=== PATIENT | male | born 1980 | race African-American/Black ===

== ENCOUNTER → 2017-11-16 | Outpatient (REF) | payer OTHER ==
[2017-11-16 14:51] LABS: SEMEN APPEARANCE OPAQUE (OPAQUE); SEMEN VISCOSITY LIQUID (LIQUID); SEMEN VOLUME 4.2 ml (4.0-5.0); SEMEN pH 8.5 (7.0-8.0); SPERM CONCENTRATION 60.3 M/ml (>=15.0); WBC CONCENTRATION <=1 M/ml (<=1 M/ml)
[2017-11-16 14:52] LABS: % NORMAL FORMS 11 % (>=4); IMMOTILITY 46 %; NON PROGRESSIVE MOTILITY (c) 9 %; PROGRESSIVE MOTILITY (a) 45 % (>=32); TOTAL MOTILITY 54 % (>=40)
[2017-11-16 14:53] LABS: SPERM# 253.4 M/Ejac (>=39)
[2017-11-16 14:54] LABS: TOTAL PROGRESSIVE SPERM 113.6 M/Ejac.
== END ==
LOC: M LAB REF 14:44
DX: Z31.41 Encounter for fertility testing (principal)
CPT/HCPCS: 89320

== ENCOUNTER 2018-04-18 00:23 | Emergency (ER) | payer OTHER ==
[2018-04-18] MEDS: NS 1,000 ML IV (00:45)
[2018-04-18 00:46] LABS: BASO # 0.1 10^3/uL (0.0-0.2); BASO % 0.8 % (0.0-1.0); EOS # 0.2 10^3/uL (0.0-0.50); EOS % 1.9 % (0.0-3.0); HEMATOCRIT 47.1 % (42.0-52.0); HEMOGLOBIN 15.3 g/dl (13.5-17.5); IMMATURE GRANULOCYTE % 0.4 % (0-3.0); LYMPH # 2.5 10^3/uL (1.5-4.5); LYMPH % 31.4 % (24.0-44.0); MEAN CORPUSCULAR HEMOGLOBIN 28.8 pg (27.0-33.0); MEAN CORPUSCULAR HGB CONC 32.5 g/dl (32.0-36.5); MEAN CORPUSCULAR VOLUME 88.5 fl (80.0-96.0); MONO # 0.7 10^3/uL (0.0-0.8); MONO % 9.2 % (0.0-5.0); NEUTROPHILS # 4.5 10^3/uL (1.8-7.7); NEUTROPHILS % 56.3 % (36.0-66.0); PLATELET COUNT, AUTOMATED 189 10^3/uL (150-450); RED BLOOD COUNT 5.32 10^6/uL (4.30-6.10); RED CELL DISTRIBUTION WIDTH 14.4 % (11.5-14.5); WHITE BLOOD COUNT 7.9 10^3/uL (4.0-10.0)
[2018-04-18 00:51] LABS: AMORPHOUS SEDIMENT SMALL (NEGATIVE); APPEARANCE, URINE CLOUDY (CLEAR); BACTERIA, URINE AUTO NEGATIVE (NEGATIVE); BILIRUBIN, URINE AUTO NEGATIVE (NEGATIVE); BLOOD, URINE BLOOD 2+ (NEGATIVE); COLOR, URINE YELLOW (YELLOW); GLUCOSE, URINE (UA) AUTO NEGATIVE (NEGATIVE); KETONE, URINE AUTO NEGATIVE (NEGATIVE); LEUKOCYTE ESTERASE, URINE AUTO TRACE (NEGATIVE); MUCUS, URINE SMALL (NEGATIVE); NITRITE, URINE AUTO NEGATIVE (NEGATIVE); PROTEIN, URINE AUTO 1+ mg/dL (NEGATIVE); RBC, URINE AUTO 73 /HPF (0-3); SQUAMOUS EPITHELIAL CELL UR AU 0 /HPF (0-6); WBC, URINE AUTO 10 /HPF (0-3)
[2018-04-18] MEDS: MORPHINE 4 MG/ML 1ML VIAL/SYRINGE (J2270) IV (00:52)
[2018-04-18 01:12] LABS: ANION GAP 9 MEQ/L (8-16); BLOOD UREA NITROGEN 17 MG/DL (7-18); CALCIUM LEVEL 8.6 MG/DL (8.5-10.1); CARBON DIOXIDE LEVEL 29 MEQ/L (21-32); CHLORIDE LEVEL 106 MEQ/L (98-107); CREATININE FOR GFR 1.71 MG/DL (0.70-1.30); GLOMERULAR FILTRATION RATE 57.8 (>60); GLUCOSE, FASTING 103 MG/DL (70-100); POTASSIUM SERUM 3.7 MEQ/L (3.5-5.1); SODIUM LEVEL 144 MEQ/L (136-145)
[2018-04-18] MEDS: CIPROFLOXACIN 500 MG TAB PO (02:39)
[2018-04-18] MEDS: OXYCODONE/APAP 5MG/325MG(BULK FOR ED) 1 TABLET PO (02:39)
== END 2018-04-18 02:45 | disposition home or self-care (01) ==
LOC: M ED 00:23
DX: N20.1 Calculus of ureter (principal); N13.30 Unspecified hydronephrosis; Z98.890 Other specified postprocedural states; Z72.0 Tobacco use
CPT/HCPCS: J2270

== ENCOUNTER → 2018-05-15 | Outpatient (REF) | payer OTHER ==
[2018-05-15 19:01] LABS: APPEARANCE, URINE HAZY (CLEAR); BACTERIA, URINE AUTO NEGATIVE (NEGATIVE); BILIRUBIN, URINE AUTO NEGATIVE (NEGATIVE); BLOOD, URINE BLOOD NEGATIVE (NEGATIVE); COLOR, URINE YELLOW (YELLOW); GLUCOSE, URINE (UA) AUTO NEGATIVE (NEGATIVE); KETONE, URINE AUTO NEGATIVE (NEGATIVE); LEUKOCYTE ESTERASE, URINE AUTO TRACE (NEGATIVE); MUCUS, URINE SMALL (NEGATIVE); NITRITE, URINE AUTO NEGATIVE (NEGATIVE); PROTEIN, URINE AUTO NEGATIVE (NEGATIVE); RBC, URINE AUTO 8 /HPF (0-3); SPECIFIC GRAVITY URINE AUTO 1.026 (1.002-1.035); SQUAMOUS EPITHELIAL CELL UR AU 0 /HPF (0-6); WBC, URINE AUTO 3 /HPF (0-3)
== END ==
LOC: M SMT 17:43
DX: N13.2 Hydronephrosis with renal and ureteral calculous obstruction (principal)
CPT/HCPCS: 81001

== ENCOUNTER 2018-05-16 14:49 | Day surgery (SDC) | payer OTHER ==
[2018-05-16] MEDS: NS 1,000 ML IV ×2 (15:15)
[2018-05-16] MEDS: KETOROLAC 30 MG/ML VIAL (J1885) IV ×2 (16:38)
[2018-05-16 16:41] LABS: BASO % 0.6 % (0.0-1.0); EOS # 0.1 10^3/uL (0.0-0.50); EOS % 1.9 % (0.0-3.0); HEMATOCRIT 46.2 % (42.0-52.0); HEMOGLOBIN 14.9 g/dl (13.5-17.5); IMMATURE GRANULOCYTE % 0.3 % (0-3.0); LYMPH # 1.7 10^3/uL (1.5-4.5); LYMPH % 23.4 % (24.0-44.0); MEAN CORPUSCULAR HEMOGLOBIN 28.3 pg (27.0-33.0); MEAN CORPUSCULAR HGB CONC 32.3 g/dl (32.0-36.5); MEAN CORPUSCULAR VOLUME 87.7 fl (80.0-96.0); MONO # 0.6 10^3/uL (0.0-0.8); MONO % 8.5 % (0.0-5.0); NEUTROPHILS # 4.8 10^3/uL (1.8-7.7); NEUTROPHILS % 65.3 % (36.0-66.0); PLATELET COUNT, AUTOMATED 182 10^3/uL (150-450); RED BLOOD COUNT 5.27 10^6/uL (4.30-6.10); WHITE BLOOD COUNT 7.3 10^3/uL (4.0-10.0)
[2018-05-16 16:42] LABS: KETONE, URINE AUTO RFX NEGATIVE (NEGATIVE); MUCUS, URINE RFX SMALL (NEGATIVE); NITRITE, URINE AUTO RFX NEGATIVE (NEGATIVE); RBC, URINE AUTO RFX 78 /HPF (0-3); SQUAM EPITHELIAL CELL UR AURFX 0 /HPF (0-6)
[2018-05-16] MEDS: ONDANSETRON 4MG/2ML VIAL (J2405) IV ×2 (16:42)
[2018-05-16 16:52] LABS: LEUKOCYTE ESTERASE UR AUTO RFX 1+ (NEGATIVE); WBC, URINE AUTO RFX 19 /HPF (0-3)
[2018-05-16 16:56] LABS: ALBUMIN 3.7 GM/DL (3.2-5.2); ALBUMIN/GLOBULIN RATIO 1.03 (1.00-1.93); ALKALINE PHOSPHATASE 49 U/L (45-117); ALT/SGPT 40 U/L (12-78); ANION GAP 7 MEQ/L (8-16); AST/SGOT 25 U/L (7-37); BILIRUBIN,DIRECT 0.1 MG/DL (0.0-0.2); BILIRUBIN,TOTAL 0.4 MG/DL (0.2-1.0); BLOOD UREA NITROGEN 19 MG/DL (7-18); CALCIUM LEVEL 8.7 MG/DL (8.5-10.1); CARBON DIOXIDE LEVEL 29 MEQ/L (21-32); CHLORIDE LEVEL 104 MEQ/L (98-107); CREATININE FOR GFR 1.71 MG/DL (0.70-1.30); GLOMERULAR FILTRATION RATE 57.5 (>60); GLUCOSE, FASTING 87 MG/DL (70-100); LIPASE 115 U/L (73-393); POTASSIUM SERUM 4.1 MEQ/L (3.5-5.1); SODIUM LEVEL 140 MEQ/L (136-145); TOTAL PROTEIN 7.3 GM/DL (6.4-8.2)
[2018-05-16] MEDS ORDERED: ROCURONIUM BROMIDE 50 MG/5 ML VIAL As Ordered ×2 (23:04)
[2018-05-16] MEDS ORDERED: LIDOCAINE 2% INJ 100 MG/5 ML SDV (FOR ANES.) As Ordered ×2 (23:04)
[2018-05-16] MEDS ORDERED: PROPOFOL 200 MG/20 ML VIAL As Ordered ×2 (23:04)
[2018-05-16] MEDS ORDERED: dexameTHASONE 4 MG/ML 1ML VIAL (J1100) As Ordered ×2 (23:04)
[2018-05-16] MEDS ORDERED: ONDANSETRON 4MG/2ML VIAL (J2405) As Ordered ×2 (23:04)
[2018-05-16] MEDS ORDERED: fentaNYL 100 MCG/2 ML INJECTION (J3010) As Ordered ×2 (23:04)
[2018-05-16] MEDS ORDERED: METOCLOPRAMIDE INJ 10MG/2ML VIAL (J2765) As Ordered ×2 (23:04)
[2018-05-16] MEDS ORDERED: MIDAZOLAM INJ 2 MG/2 ML VIAL (J2250) As Ordered ×2 (23:04)
[2018-05-16] MEDS: ceFAZolin 2 GM/D5W 50 ML IV BAG (J0690 PER 500MG) As Ordered ×2 (23:05)
[2018-05-16] MEDS: CONRAY-60 60% 50ML VIAL (Q9961) As Ordered ×2 (23:32)
[2018-05-17] MEDS ORDERED: fentaNYL 100 MCG/2 ML INJECTION (J3010) IV ×2 (00:30)
[2018-05-17] MEDS ORDERED: ONDANSETRON 4MG/2ML VIAL (J2405) IV ×2 (00:30)
[2018-05-17] MEDS ORDERED: LR 1,000 ML IV ×2 (00:30)
[2018-05-17] MEDS ORDERED: PERCOCET 5MG/325MG TAB PO ×2 (00:30)
[2018-05-17] MEDS ORDERED: NORCO, ANEXSIA 5/325MG TABLET (HYDROcodone/ACETAMINOPHEN) PO ×2 (00:30)
== END 2018-05-17 02:30 | disposition home or self-care (01) ==
LOC: M MS4PR 05-17 00:55 → M SDC 05-17 02:30 → M ED 14:49 → M SDC 20:10
DX: N20.1 Calculus of ureter (principal); I10 Essential (primary) hypertension
CPT/HCPCS: 52352

== ENCOUNTER 2018-08-14 21:38 | Emergency (ER) | payer OTHER ==
[~2018-08-14] VITALS: Ht 177.8 cm; Wt 105.9 kg
[~2018-08-14 21:38] MED LIST: CIPR-249 PO; FLOM0.4C39 PO; HYDR12CA PO; PERC5TAB12 PO; VIAG100T PO
[2018-08-14] MEDS ORDERED: IBUPROFEN 600 MG TAB PO ONE (23:15)
[2018-08-14] MEDS ORDERED: BACITRACIN OINT 30GM TOP ONE (23:15)
[2018-08-14] MEDS ORDERED: LIDOCAINE W/EPINEPHRINE 1% 20ML VIAL SC ONE (23:15)
[2018-08-14 23:43] VITALS: BP 145/90
== END 2018-08-14 23:46 | disposition home or self-care (01) ==
LOC: M ED 21:38
DX: S81.811A Laceration without foreign body, right lower leg, initial encounter (principal); X58.XXXA Exposure to other specified factors, initial encounter; Y92.098 Other place in other non-institutional residence as the place of occurrence of the external cause; I10 Essential (primary) hypertension; Z79.899 Other long term (current) drug therapy

== ENCOUNTER 2018-08-20 19:52 | Emergency (ER) | payer OTHER ==
[~2018-08-20] VITALS: Ht 177.8 cm; Wt 109.1 kg
[2018-08-20 20:25] LABS: BASO # 0.1 10^3/uL (0.0-0.2); BASO % 1.1 % (0.0-1.0); EOS # 0.1 10^3/uL (0.0-0.50); EOS % 1.7 % (0.0-3.0); HEMOGLOBIN 15.7 g/dl (13.5-17.5); LYMPH # 2.2 10^3/uL (1.5-4.5); LYMPH % 41.2 % (24.0-44.0); MEAN CORPUSCULAR HEMOGLOBIN 28.6 pg (27.0-33.0); MEAN CORPUSCULAR HGB CONC 33.4 g/dl (32.0-36.5); MEAN CORPUSCULAR VOLUME 85.6 fl (80.0-96.0); MONO # 0.6 10^3/uL (0.0-0.8); MONO % 10.2 % (0.0-5.0); NEUTROPHILS # 2.5 10^3/uL (1.8-7.7); NEUTROPHILS % 45.6 % (36.0-66.0); PLATELET COUNT, AUTOMATED 217 10^3/uL (150-450); RED BLOOD COUNT 5.49 10^6/uL (4.30-6.10); WHITE BLOOD COUNT 5.4 10^3/uL (4.0-10.0)
[2018-08-20 20:49] LABS: ALBUMIN 3.7 GM/DL (3.2-5.2); ALT/SGPT 39 U/L (12-78); BILIRUBIN,DIRECT 0.1 MG/DL (0.0-0.2); BILIRUBIN,TOTAL 0.3 MG/DL (0.2-1.0); BLOOD UREA NITROGEN 14 MG/DL (7-18); CALCIUM LEVEL 8.1 MG/DL (8.5-10.1); CARBON DIOXIDE LEVEL 28 MEQ/L (21-32); CHLORIDE LEVEL 104 MEQ/L (98-107); CREATININE FOR GFR 1.22 MG/DL (0.70-1.30); GLOMERULAR FILTRATION RATE > 60.0 (>60); GLUCOSE, FASTING 91 MG/DL (70-100); LIPASE 106 U/L (73-393); POTASSIUM SERUM 3.4 MEQ/L (3.5-5.1); SODIUM LEVEL 140 MEQ/L (136-145); TOTAL PROTEIN 7.3 GM/DL (6.4-8.2)
[2018-08-20] MEDS ORDERED: KETOROLAC 30 MG/ML VIAL (J1885) IM ONE (22:30)
--- NOTE | 2018-08-20 23:11 | REPVR ---
EXAM: CT Abdomen and Pelvis Without Contrast EXAM DATE/TIME: 08/20/2018 10:38 PM CLINICAL HISTORY: 38 years old, male; Pain; Abdominal pain; Flank; Right; Additional info: Right flank pain TECHNIQUE: Axial computed tomography images of the abdomen and pelvis without contrast. All CT scans at this facility use at least one of these dose optimization techniques: automated exposure control; mA and/or kV adjustment per patient size (includes targeted exams where dose is matched to clinical indication); or iterative reconstruction. Coronal and sagittal reformatted images were created and reviewed. COMPARISON: CT ABD PELVIS W/O CONTRAST 05/16/2018 3:06 PM FINDINGS: Lower thorax: No acute findings. ABDOMEN: Liver: Normal. No mass. Gallbladder and bile ducts: Normal. No calcified stones. No ductal dilation. Pancreas: Normal. No ductal dilation. Spleen: Normal. No splenomegaly. Adrenals: Normal. No mass. Kidneys and ureters: Punctate nonobstructive calculus lower pole left kidney and upper /mid pole right kidney. Stomach and bowel: Normal. No obstruction. No mucosal thickening. Appendix: No evidence of appendicitis. PELVIS: Bladder: Unremarkable as visualized. Reproductive: Unremarkable as visualized. ABDOMEN and PELVIS: Intraperitoneal space: Normal. No free air. No significant fluid collection. Bones/joints: No acute fracture. No dislocation. Degenerative spondylosis L5-S1. Soft tissues: Unremarkable. Vasculature: Normal. No abdominal aortic aneurysm. Lymph nodes: Normal. No enlarged lymph nodes. IMPRESSION: No acute findings. Electronically signed by: David Long On 08/20/2018 23:11:18 PM
[2018-08-20] MEDS ORDERED: OXYCODONE/APAP 5MG/325MG(BULK FOR ED) 1 TABLET PO ONE (23:45)
[2018-08-21 00:08] VITALS: BP 140/108
== END 2018-08-21 00:01 | disposition home or self-care (01) ==
LOC: M ED 19:52
DX: R10.9 Unspecified abdominal pain (principal); I10 Essential (primary) hypertension; Z87.442 Personal history of urinary calculi; F17.210 Nicotine dependence, cigarettes, uncomplicated; Z79.899 Other long term (current) drug therapy
CPT/HCPCS: 74176; 80048; 80076; 81001; 83690; 85025; 96372; 99284; J1885

== ENCOUNTER → 2020-09-10 | Outpatient (CLI) | payer OTHER ==
--- NOTE | 2020-09-11 14:54 | SLEEPCENT ---
NOCTURNAL POLYSOMNOGRAPHY DATE: 09/10/2020 ORDERED BY: Jess Dominguez PA-C [facility]. Nocturnal polysomnography was performed for evaluation of sleep physiology in this patient with a history of excessive somnolence and prior sleep testing with inconclusive results. 7 hours and 29 minutes of data were reviewed. There were 322.5 minutes of sleep identified. Sleep latency was normal at 9.5 minutes. REM latency was normal at 108 minutes. Sleep architecture was fairly well preserved with four REM cycles, but fragmentation was noted particularly in non-REM stages. Overall sleep efficiency was 73.5%. The patient's electrocardiogram showed a sinus rhythm with an average heart rate of 65 beats per minute; rate range 55 to 90. EEG showed reasonably normal waveforms for wake and sleep. There was some EKG bleed through. No focal events were identified. There were 57 respiratory events identified of 10 seconds in duration or greater for an apnea-hypopnea index of 10.6. The events were obstructive, not exclusive to sleep stage, not exclusive to body position. Arousals from respiratory events were seen 5.4 times per hour. Oxygen saturations were maintained at 90% plus. There was some limb activity noted as well. Only one train of 30 events, but the limb movement arousal index was borderline at 8. IMPRESSION: Obstructive sleep apnea syndrome (G47.33), apnea-hypopnea index 10.6. RECOMMENDATION: The patient should be encouraged to return to [facility] for [facility]. In the interim, alcohol and sedative avoidance should be practiced and caution exercised during the operation of motor vehicles. COMMENTS: Multiple sleep latency testing ordered was not performed as the patient's diagnosis of obstructive sleep apnea syndrome was felt to be sufficient cause for the hypersomnia reported.
== END ==
LOC: M SLEEP 20:00
PROVIDERS: ATTEND Physician Assistant Medical
DX: G47.10 Hypersomnia, unspecified (principal)

== ENCOUNTER → 2022-03-13 | Outpatient (CLI) | payer OTHER ==
[~2022-03-13] MED LIST changes: +ATOR80TA59 PO; +LISI10TA22 PO; +OXYB5TAB10 PO; +PHEN-500 PO; +VITA100093 PO
== END ==
LOC: M LABSMTC 11:30
PROVIDERS: ATTEND Anesthesiology
DX: Z01.812 Encounter for preprocedural laboratory examination (principal); Z20.822 Contact with and (suspected) exposure to COVID-19

== ENCOUNTER 2022-03-18 11:49 | Day surgery (SDC) | payer OTHER ==
[~2022-03-18] VITALS: Ht 177.8 cm; Wt 108.9 kg
[~2022-03-18 11:49] MED LIST changes: +ceFAZolin SOD 2 GM in IV 1 EA IV ONE
[2022-03-18] MEDS ORDERED: dexameTHASONE 4 MG/ML 1ML VIAL (J1100 PER 1MG) As Ordered ONE ×2 (12:05→12:06)
[2022-03-18] MEDS ORDERED: fentaNYL 250 MCG/5 ML INJECTION As Ordered ONE (12:05)
[2022-03-18] MEDS ORDERED: MIDAZOLAM INJ 2MG/2ML VIAL (J2250 PER 1MG) As Ordered ONE (12:05)
[2022-03-18] MEDS ORDERED: LR 1,000 ML IV SCH ×2 (12:05→15:05)
[2022-03-18] MEDS ORDERED: propofoL 200 MG/20 ML VIAL As Ordered ONE (12:06)
[2022-03-18] MEDS ORDERED: ONDANSETRON 4MG 2ML VIAL As Ordered ONE (12:06)
[2022-03-18] MEDS ORDERED: LIDOCAINE 2% 100MG/5ML SDV (FOR ANES.) As Ordered ONE (12:06)
[2022-03-18] MEDS ORDERED: ISOVUE-300 61% 50ML VIAL As Ordered ONE (12:20)
[2022-03-18] MEDS ORDERED: ACETAMINOPHEN 1000MG 100ML IV BTL (OFIRMEV) (J0131 PER 10MG) As Ordered ONE (13:23)
[2022-03-18] MEDS ORDERED: ePHEDrine SULFATE 25 MG/5 ML(5MG/ML) SYRINGE As Ordered ONE (13:54)
[2022-03-18] MEDS ORDERED: METOCLOPRAMIDE INJ 10MG/2ML VIAL (J2765 PER 1) As Ordered ONE (13:54)
[2022-03-18] MEDS ORDERED: oxyCODONE 5MG TAB PO PRN (15:05)
[2022-03-18] MEDS ORDERED: HYDROMORPHONE HCL 0.5 MG/ 0.5 ML SYRINGE (J1170 PER 1) IV PRN (15:05)
[2022-03-18] MEDS ORDERED: ONDANSETRON 4MG 2ML VIAL IV PRN (15:05)
[2022-03-18] MEDS ORDERED: fentaNYL 100 MCG/2 ML INJECTION IV PRN (15:05)
[2022-03-18 15:50] VITALS: BP 134/86
[2022-03-18] MEDS ORDERED: PERCOCET 5MG/325MG TAB PO PRN (16:20)
[2022-03-25 10:09] LABS: CA Oxalate Dihy 100 % (.); Size 4x3 mm (.)
== END 2022-03-18 16:37 | disposition home or self-care (01) ==
LOC: M SDC 11:49
PROVIDERS: ATTEND Urology
DX: N20.1 Calculus of ureter (principal); G47.33 Obstructive sleep apnea (adult) (pediatric); F17.210 Nicotine dependence, cigarettes, uncomplicated; I10 Essential (primary) hypertension; E11.9 Type 2 diabetes mellitus without complications; Z79.899 Other long term (current) drug therapy
CPT/HCPCS: 52356; 74420; 82365; C1769; C1894; C2617; J0131; J0690; J1100; J2250; J2405; J2765; J3010; Q9967

== ENCOUNTER → 2022-07-07 | Outpatient (CLI) | payer OTHER ==
[~2022-07-07] MED LIST changes: -ceFAZolin SOD 2 GM in IV 1 EA IV ONE
== END ==
LOC: M SLEEP 19:33
PROVIDERS: ATTEND Nurse Practitioner Primary Care
DX: G47.33 Obstructive sleep apnea (adult) (pediatric) (principal)